=== PATIENT | male | born 1955 | race American Indian/Alaskan Native ===

== ENCOUNTER 2018-11-25 06:45 | Emergency (ER) | payer MEDICAID ==
[2018-11-25 06:45] VITALS: BMI 24.3
[2018-11-25 06:57] VITALS: TEMP 97.7
--- NOTE | 2018-11-25 07:35 | C.PDOC ---
History Of Present Illness 62 y/o male presents to the ER complaining of rash to bilateral inner thighs which has been present for the past several days. Patient states that he feels burning sensation to the area and his jeans are rubbing against the area. Patient reports that he has minimal itching. Denies having fever,chills, and history of diabetes. Time Seen by Provider: 11/25/18 07:25 Chief Complaint (Nursing): Abnormal Skin Integrity History Per: Patient History/Exam Limitations: no limitations Onset/Duration Of Symptoms: Days Current Symptoms Are (Timing): Still Present Severity: Moderate Past Medical History Reviewed: Historical Data, Nursing Documentation, Vital Signs Vital Signs: Last Vital Signs Temp 97.7 F 11/25/18 06:56 Pulse 86 11/25/18 06:56 Resp 22 11/25/18 06:56 BP 129/70 11/25/18 06:56 Pulse Ox 100 11/25/18 06:56 - Medical History PMH: No Chronic Diseases Denies: Chronic Kidney Disease Surgical History: No Surg Hx Family History: States: No Known Family Hx - Social History Hx Tobacco Use: (unknown) Hx Alcohol Use: Yes Hx Substance Use: No (unknown) - Immunization History Hx Tetanus Toxoid Vaccination: No (unknown) Hx Influenza Vaccination: No (unknown) Hx Pneumococcal Vaccination: No (unknown) Review Of Systems Except As Marked, All Systems Reviewed And Found Negative. Constitutional: Negative for: Fever, Chills Skin: Positive for: Rash (rash to bilateral inner thighs) Physical Exam - Physical Exam Appears: Non-toxic, No Acute Distress Skin: Warm, Dry, Other (some excoriated skin to left proximal inner thigh, no weeping, no vesicles, questionable local tinea; minimal chronic discoloration to right inner thigh) Head: Atraumatic, Normacephalic Eye(s): bilateral: Normal Inspection Neurological/Psych: Oriented x3, Normal Speech ED Course And Treatment O2 Sat by Pulse Oximetry: 100 (RA) Pulse Ox Interpretation: Normal Medical Decision Making Medical Decision Making: Patient has been instructed to keep area dry and covered. Patient has been discharged with prescriptions for Cephalexin, Lotrimin, and Motrin. Disposition Counseled Patient/Family Regarding: Diagnosis, Need For Followup, Rx Given - Disposition Referrals: Counts Include [facility] [Outside] [facility] [Outside] Disposition: HOME/ ROUTINE Disposition Time: 07:34 Condition: GOOD Prescriptions: Cephalexin [cephalexin] 500 mg PO BID #14 cap Clotrimazole 1% Cream [Lotrimin 1% CREAM] 1 applic TOP BID #1 tube Ibuprofen [Motrin] 600 mg PO Q6 #30 tab Instructions: Kalieck Itch (DC) Forms: [facility] (Palestinian) - Clinical Impression Clinical Impression: Jock itch - Scribe Statement The provider has reviewed the documentation as recorded by the Adriana Callahan Provider Attestation: All medical record entries made by the Ruchiibdari were at my direction and personally dictated by me. I have reviewed the chart and agree that the record accurately reflects my personal performance of the history, physical exam, medical decision making, and the department course for this patient. I have also personally directed, reviewed, and agree with the discharge instructions and disposition.
[2018-11-25 08:24] VITALS: BP 132/86; PULSE 71; RESP 20; O2SAT 98
== END 2018-11-25 09:22 | disposition home or self-care (01) ==
LOC: C.ER 06:45
DX: B35.6 Tinea cruris (principal)